=== PATIENT | male | born 1980 | race African-American/Black ===

== ENCOUNTER 2024-05-15 07:19 | Day surgery (SDC) | payer BC ==
[2024-05-10 10:41] VITALS: BMI 27.2
[2024-05-15] MEDS ORDERED: PROPOFOL 160 ML ONE (07:25)
[2024-05-15] MEDS ORDERED: LIDOCAINE HCL/PF 2% SDV 5ML VIAL ONE ×2 (07:25→08:29)
[2024-05-15] MEDS ORDERED: PROPOFOL 40 ML ONE (08:30)
[2024-05-15 09:14] VITALS: TEMP 97.5
[2024-05-15 09:31] VITALS: BP 112/58; PULSE 68; RESP 19
== END 2024-05-15 09:30 | disposition home or self-care (01) ==
LOC: FASU-ENDO 07:19
PROVIDERS: ATTEND Internal Medicine Gastroenterology
PROC: 0DBL8ZX Excision of Transverse Colon, Via Natural or Artificial Opening Endoscopic, Diagnostic (ICD-10-PCS; 2024-05-15)
PROC: 0DBK8ZX Excision of Ascending Colon, Via Natural or Artificial Opening Endoscopic, Diagnostic (ICD-10-PCS; principal; 2024-05-15 08:36)
DX: Z12.11 Encounter for screening for malignant neoplasm of colon (principal); K63.5 Polyp of colon; K64.8 Other hemorrhoids
CPT/HCPCS: 88305-TC